=== PATIENT | female | born 1960 | race African-American/Black ===

== ENCOUNTER 2022-01-29 10:11 | Outpatient (CLI) | payer BC | END 2022-01-29 10:12 | disposition home or self-care (01) | LOC: CSHMAMMO 10:11 | PROVIDERS: ATTEND Physician Assistant | DX: Z12.31 Encounter for screening mammogram for malignant neoplasm of breast (principal); Z80.3 Family history of malignant neoplasm of breast | CPT/HCPCS: 77063; 77067 ==

== ENCOUNTER 2024-02-21 10:35 | Outpatient (CLI) | payer BC | END 2024-02-21 10:36 | disposition home or self-care (01) | LOC: CSHMAMMO 10:35 | PROVIDERS: ATTEND Physician Assistant | DX: Z12.31 Encounter for screening mammogram for malignant neoplasm of breast (principal); Z80.3 Family history of malignant neoplasm of breast | CPT/HCPCS: 77063; 77067 ==